=== PATIENT | male | born 1995 | race Caucasian/White ===

== ENCOUNTER 2020-07-18 19:43 | Emergency (ER) | payer BC ==
[2020-07-18] MEDS ORDERED: Ondansetron 4 MG Tab.DIS PO ONE (20:40)
--- NOTE | 2020-07-18 20:43 | EDM.PDOC ---
ED HPI GENERAL MEDICAL PROBLEM - General Chief Complaint: General Stated Complaint: DEHYDRATION/BACK PAIN/ Time Seen by Provider: 07/18/20 20:43 Source of Information: Reports: Patient, Old Records, RN History Limitations: Reports: No Limitations - History of Present Illness INITIAL COMMENTS - FREE TEXT/NARRATIVE: 25 yo male presents with nausea and a couple of emesis today. Has a low grade fever and took only one dose of an antipyretic this morning. His urine is dark and he has some mild dysuria. Was tested + for Covid about a month ago. Is not dizzy with standing. Here with his mother. 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) Lower Back Pain Score (Numeric/FACES): 3 - Related Data Allergies Allergy/AdvReac Type Severity Reaction Status Date / Time No Known Allergies Allergy Verified 08/03/13 20:31 Home Meds: Home Meds NK [No Known Home Meds] 07/18/20 [History] Past Medical History Neurological History: Reports: Concussion - Infectious Disease History Infectious Disease History: Reports: Novel Coronavirus - Past Surgical History HEENT Surgical History: Reports: Adenoidectomy, Tonsillectomy Social & Family History - Tobacco Use Tobacco Use Status *Q: Never Tobacco User - Caffeine Use Caffeine Use: Reports: Coffee, Soda, Tea - Alcohol Use Days Per Week of Alcohol Use: 1 Number of Drinks Per Day: 5 Total Drinks Per Week: 5 - Recreational Drug Use Recreational Drug Use: No ED ROS GENERAL - Review of Systems Review Of Systems: See Below Constitutional: Reports: No Symptoms HEENT: Reports: No Symptoms Respiratory: Reports: No Symptoms Cardiovascular: Reports: No Symptoms GI/Abdominal: Reports: Nausea, Vomiting. Denies: Black Stool, Bloody Stool, Diarrhea, Hematemesis, Hematochezia, Melena : Reports: Dysuria, Frequency, Other (dark urine) Musculoskeletal: Reports: No Symptoms Skin: Reports: No Symptoms Neurological: Reports: No Symptoms ED EXAM, GENERAL - Physical Exam Exam: See Below Exam Limited By: No Limitations General Appearance: Alert, WD/WN, No Apparent Distress, Obese Eye Exam: Bilateral Eye: Normal Inspection Ears: Normal External Exam, Normal Canal, Hearing Grossly Normal, Normal TMs Ear Exam: Bilateral Ear: Auricle Normal, Canal Normal, TM normal Nose: Normal Inspection, No Blood Throat/Mouth: Normal Inspection, Normal Lips, Normal Oropharynx, Normal Voice, No Airway Compromise Head: Atraumatic, Normocephalic Neck: Normal Inspection Respiratory/Chest: No Respiratory Distress, Lungs Clear, Normal Breath Sounds, No Accessory Muscle Use Cardiovascular: Regular Rate, Rhythm, No Edema, Tachycardia GI/Abdominal: Normal Bowel Sounds, Soft, Non-Tender, No Distention Back Exam: No: CVA Tenderness (R), CVA Tenderness (L) Extremities: Normal Inspection, Normal Range of Motion, Non-Tender, No Pedal Edema Neurological: Alert, Oriented, CN II-XII Intact, Normal Cognition, No Motor/Sensory Deficits Psychiatric: Normal Affect, Normal Mood Skin Exam: Warm, Dry, Intact, Normal Color, No Rash Course - Vital Signs Last Recorded V/S: Last Vital Signs Temp 37.4 C 07/18/20 21:34 Pulse 133 H 07/18/20 20:33 Resp 20 07/18/20 20:33 BP 133/78 07/18/20 20:33 Pulse Ox 98 07/18/20 20:33 - Orders/Labs/Meds Orders: Active Orders 24 hr Category Date Time Status Chest 2V [CR] Stat Exams 07/18/20 21:32 Taken CULTURE BLOOD [BC] Routine Lab 07/18/20 21:45 Received CULTURE BLOOD [BC] Stat Lab 07/18/20 21:35 Received Lactated Ringers [Ringers, Lactated] 1,000 ml Med 07/18/20 21:07 Active IV BOLUS Medication Orders Lactated Ringer's (Ringers, Lactated) 1,000 mls @ 1,000 mls/hr IV BOLUS ONE Stop: 07/18/20 22:06 Last Admin: 07/18/20 21:20 Dose: 1,000 mls/hr Documented by: AYAH Labs: Laboratory Tests 07/18/20 07/18/20 07/18/20 Range/Units 20:54 20:54 20:56 WBC 26.1 H (4.5-11.0) K/uL RBC 4.19 L (4.30-5.90) M/uL Hgb 12.7 (12.0-15.0) g/dL Hct 39.2 L (40.0-54.0) % MCV 94 (80-98) fL MCH 30 (27-31) pg MCHC 32 (32-36) % Plt Count 208 (150-400) K/uL Sodium 135 L (140-148) mmol/L Potassium 4.2 (3.6-5.2) mmol/L Chloride 100 (100-108) mmol/L Carbon Dioxide 24 (21-32) mmol/L Anion Gap 15.2 H (5.0-14.0) mmol/L BUN 12 (7-18) mg/dL Creatinine 1.1 (0.8-1.3) mg/dL Est Cr Clr Drug Dosing 106.92 mL/min Estimated GFR (MDRD) > 60 (>60) Glucose 100 (74-106) mg/dL Lactic Acid (0.4-2.0) mmol/L Calcium 8.3 L (8.5-10.1) mg/dL C-Reactive Protein (0.0-0.3) mg/dL Urine Color Yellow (YELLOW) Urine Appearance Clear (CLEAR) Urine pH 5.5 (5.0-8.0) Ur Specific Call 1.020 (1.008-1.030) Urine Protein Negative (NEGATIVE) mg/dL Urine Glucose (UA) Negative (NEGATIVE) mg/dL Urine Ketones Negative (NEGATIVE) mg/dL Urine Occult Blood Negative (NEGATIVE) Urine Nitrite Negative (NEGATIVE) Urine Bilirubin Negative (NEGATIVE) Urine Urobilinogen 2.0 H (0.2-1.0) EU/dL Ur Leukocyte Esterase Negative (NEGATIVE) Urine RBC Not seen (0-5) Urine WBC Not seen (0-5) Ur Epithelial Cells Not seen Urine Bacteria Not seen 07/18/20 07/18/20 Range/Units 21:10 21:29 WBC (4.5-11.0) K/uL RBC (4.30-5.90) M/uL Hgb (12.0-15.0) g/dL Hct (40.0-54.0) % MCV (80-98) fL MCH (27-31) pg MCHC (32-36) % Plt Count (150-400) K/uL Sodium (140-148) mmol/L Potassium (3.6-5.2) mmol/L Chloride (100-108) mmol/L Carbon Dioxide (21-32) mmol/L Anion Gap (5.0-14.0) mmol/L BUN (7-18) mg/dL Creatinine (0.8-1.3) mg/dL Est Cr Clr Drug Dosing mL/min Estimated GFR (MDRD) (>60) Glucose (74-106) mg/dL Lactic Acid 0.8 (0.4-2.0) mmol/L Calcium (8.5-10.1) mg/dL C-Reactive Protein 1.65 H (0.0-0.3) mg/dL Urine Color (YELLOW) Urine Appearance (CLEAR) Urine pH (5.0-8.0) Ur Specific Call (1.008-1.030) Urine Protein (NEGATIVE) mg/dL Urine Glucose (UA) (NEGATIVE) mg/dL Urine Ketones (NEGATIVE) mg/dL Urine Occult Blood (NEGATIVE) Urine Nitrite (NEGATIVE) Urine Bilirubin (NEGATIVE) Urine Urobilinogen (0.2-1.0) EU/dL Ur Leukocyte Esterase (NEGATIVE) Urine RBC (0-5) Urine WBC (0-5) Ur Epithelial Cells Urine Bacteria Meds: Medications Generic Name Dose Route Start Last Admin Trade Name Freq PRN Reason Stop Dose Admin Lactated Ringer's 1,000 mls @ 1,000 mls/hr 07/18/20 21:07 07/18/20 21:20 Ringers, Lactated IV 07/18/20 22:06 1,000 mls/hr BOLUS ONE Administration Discontinued Medications Generic Name Dose Route Start Last Admin Trade Name Freq PRN Reason Stop Dose Admin Acetaminophen 1,000 mg 07/18/20 20:46 07/18/20 20:51 Tylenol PO 07/18/20 20:47 1,000 mg NOW ONE Administration Ondansetron HCl 4 mg 07/18/20 20:40 07/18/20 20:44 Zofran Odt PO 07/18/20 20:41 4 mg ONETIME ONE Administration - Radiology Interpretation Free Text/Narrative:: CXR- Departure - Departure Time of Disposition: 22:10 Disposition: Home, Self-Care 01 Condition: Fair Clinical Impression: Viral syndrome Nausea and vomiting Qualifiers: Vomiting type: unspecified Vomiting Intractability: non-intractable Qualified Code(s): R11.2 - Nausea with vomiting, unspecified - Discharge Information *PRESCRIPTION DRUG MONITORING PROGRAM REVIEWED*: Not Applicable *COPY OF PRESCRIPTION DRUG MONITORING REPORT IN PATIENT FINA: Not Applicable Instructions: Nausea, Adult, [id number] Referrals: PCP,None [Primary Care Provider] - Forms: ED Department Discharge Additional Instructions: Take acetaminophen up to 1000 mg every 6 hrs for fever control. Use Zofran every 6 hrs as needed under the tongue for nausea control. Drink enough fluids so that your urine is light yellow in color. Recheck with your provider if not better by the end of the week. We will contact you if your blood culture grows anything. Return if worse. Sepsis Event Note (ED) - Evaluation Sepsis Screening Result: No Definite Risk - Focused Exam Vital Signs: Vital Signs Temp Temp Pulse Resp BP Pulse Ox 07/18/20 21:34 37.4 C 07/18/20 20:51 38.1 C 07/18/20 20:33 38.1 C 133 H 20 133/78 98 - My Orders Last 24 Hours: My Active Orders 07/18/20 21:07 Lactated Ringers [Ringers, Lactated] 1,000 ml IV BOLUS 07/18/20 21:32 Chest 2V [CR] Stat 07/18/20 21:35 CULTURE BLOOD [BC] Stat 07/18/20 21:45 CULTURE BLOOD [BC] Routine - Assessment/Plan Last 24 Hours: My Active Orders 07/18/20 21:07 Lactated Ringers [Ringers, Lactated] 1,000 ml IV BOLUS 07/18/20 21:32 Chest 2V [CR] Stat 07/18/20 21:35 CULTURE BLOOD [BC] Stat 07/18/20 21:45 CULTURE BLOOD [BC] Routine
[2020-07-18] MEDS ORDERED: Acetaminophen 325 MG Tab PO ONE (20:46)
[2020-07-18] MEDS ORDERED: Lactated Ringers 1,000 ML IV ONE (21:07)
[2020-07-18 22:20] VITALS: BP 115/79; PULSE 110
--- NOTE | 2020-07-19 10:14 | CR ---
CHEST: 2 view CLINICAL HISTORY:Cough, leukocytosis COMPARISON:None FINDINGS: The heart size, pulmonary vascularity and hilar structures are normal. No infiltrate effusion or pneumothorax is seen. IMPRESSION: No acute cardiopulmonary process.
== END 2020-07-18 22:45 | disposition home or self-care (01) ==
LOC: JP.ED 19:43
DX: B34.9 Viral infection, unspecified (principal)
CPT/HCPCS: 36415; 71046; 80048; 81001; 83605; 85027; 86140; 87040; 99284; A9270; J7120